=== PATIENT | male | born 1965 | race Caucasian/White ===

== ENCOUNTER 2017-07-02 21:04 | Emergency (ER) | payer OTHER ==
[2017-07-02 21:04] VITALS: BMI 36.6
--- NOTE | 2017-07-02 22:34 | C.PDOC ---
History Of Present Illness 51 year old male presents to the ED woith complaints of right foot pain for four days following a trip and fall at home four days ago. Patient notes swelling today and increased pain on ambulation which prompted visit. He denies weakness or numbness. Time Seen by Provider: 07/02/17 21:17 Chief Complaint (Nursing): Lower Extremity Problem/Injury History Per: Patient History/Exam Limitations: no limitations Onset/Duration Of Symptoms: Days (4 days ) Current Symptoms Are (Timing): Still Present Recent travel outside of the [place]: No - Ankle/Foot Description Of Injury: Fell (tripped and fell ) Past Medical History Reviewed: Historical Data, Nursing Documentation, Vital Signs Vital Signs: Last Vital Signs Temp 98.0 F 07/03/17 01:16 Pulse 86 07/03/17 01:16 Resp 18 07/03/17 01:16 BP 149/86 07/03/17 01:16 Pulse Ox 97 07/03/17 05:23 - Medical History PMH: HTN, Hypercholesterolemia Denies: Colonic Polyps Surgical History: Denies: Coronary Stent, Endoscopy - [facility] Procedures MEASURE OF CARDIAC SAMPL & PRESSURE, L HEART, PERC APPROACH (01/10/16) PLAIN RADIOGRAPHY OF MULT COR ART USING OTH CONTRAST (01/10/16) Family History: States: Unknown Family Hx - Social History Hx Alcohol Use: No Hx Substance Use: No - Immunization History Hx Tetanus Toxoid Vaccination: No Hx Influenza Vaccination: Yes Hx Pneumococcal Vaccination: Yes Review Of Systems Constitutional: Negative for: Fever, Chills Musculoskeletal: Positive for: Foot Pain (right foot pain ) Neurological: Negative for: Weakness, Numbness Physical Exam - Physical Exam Appears: Non-toxic, No Acute Distress Skin: Warm, Dry, No Ecchymosis (of the right foot ) Head: Atraumatic, Normacephalic Eye(s): bilateral: Normal Inspection, PERRL, EOMI Neck: Normal ROM, Supple Extremity: Normal ROM, Tenderness ( lateral right foot. Ankle is non-tender. ) , No Calf Tenderness, Capillary Refill (good capillary refill, less than two seconds ), No Deformity, Swelling (moderate swelling to entire right foot ) Extremity: Bilateral: Normal Color And Temperature Pulses: Left Dorsalis Pedis: Normal, Right Dorsalis Pedis: Normal Neurological/Psych: Oriented x3, Normal Speech, Normal Motor, Normal Sensation Gait: With Assistance (from spouse and a limp due to pain) ED Course And Treatment O2 Sat by Pulse Oximetry: 97 (RA) - Other Rad Right Foot X-Ray X-Ray: Interpreted by Me, Viewed By Me Interpretation: Coleman fracture at the Rt 5th MTP of right foot. Right Ankle X-Ray X-Ray: Interpreted by Me, Viewed By Me Interpretation: No fracture or dislocation. Progress Note: Right foot and ankle X-rays were ordered and patient was given motrin. Patient was evaluated at bedside by podiatry resident. Short leg splint was applied. On reassessment, patient is resting comfortably, and is in no acute distress. Patient was instructed to follow up with podiatry clinic in 1-2 days for further evaluation. - Physician Consult Information Time Consulting Physician Contacted: 12:10 Physician Contacted: Brian Alejo (Podiatry res) Outcome Of Conversation: Will evaluate in ER Disposition Counseled Patient/Family Regarding: Diagnosis, Need For Followup, Rx Given - Disposition Referrals: Podiatry Clinic [Outside] Disposition: HOME/ ROUTINE Disposition Time: 22:34 Condition: STABLE Additional Instructions: Please follow up with Dr Huang in Podiatry clinic on friday Use crutches at home - Do not bear weight Elevate the leg Take tylenol Extra strenghth for pain Return to ER if worse Instructions: Foot Fracture in Adults (ED) Forms: [facility] (J[place]ican), Work Excuse - Clinical Impression Clinical Impression: Foot fracture, right - PA / [employer]ING [employer] / Resident Statement MD/DO has reviewed & agrees with the documentation as recorded. - Scribe Statement The provider has reviewed the documentation as recorded by the Scribjose antonio Sultana All medical record entries made by the Ameibjose antonio were at my direction and personally dictated by me. I have reviewed the chart and agree that the record accurately reflects my personal performance of the history, physical exam, medical decision making, and the department course for this patient. I have also personally directed, reviewed, and agree with the discharge instructions and disposition.
--- NOTE | 2017-07-03 00:08 | CP.PCM.CON ---
History of Present Illness - History of Present Illness History of Present Illness: Podiatry Consult Note - Dr. Huang 51 year old male patient PMHx hypertension seen in ED complaining of right foot pain. Patient is accompanied by his at bedside. Patient states this past Friday, he tripped and fell down 1 step. Denies loss of consciousness. Patient states he was able to ambulate without difficulty for 3 days after his fall. Patient states yesterday he began to feel pain on the side of his right foot which prompted him to present to ED. Patient admits to only feeling pain when bearing weight to right foot. Patient denies any prior treatment to alleviate pain. Patient denies N/V/F/D/C/SOB. No other pedal complaints at this time. PMH: HTN, hypercholesterolemia PSH: denies FH: non-contributory SH: current smoker, (-)ETOH; patient is employed as a [employer] driver Meds: see med list All: NKDA Review of Systems - Review of Systems All systems: reviewed and no additional remarkable complaints except (as per HPI ) Past Patient History - Infectious Disease Hx of Infectious Diseases: None - Past Medical History & Family History Past Medical History?: Yes - Past Social History Smoking Status: Former Smoker - CARDIAC Hx Hypercholesterolemia: Yes Hx Hypertension: Yes - PULMONARY Hx Respiratory Disorders: No - NEUROLOGICAL Hx Neurological Disorder: No - HEENT Hx HEENT Problems: No - RENAL Hx Chronic Kidney Disease: No - ENDOCRINE/METABOLIC Hx Endocrine Disorders: No - HEMATOLOGICAL/ONCOLOGICAL Hx Blood Transfusions: No - INTEGUMENTARY Hx Dermatological Problems: No - MUSCULOSKELETAL/RHEUMATOLOGICAL Hx Musculoskeletal Disorders: No Hx Falls: No - GASTROINTESTINAL Hx Gastrointestinal Disorders: No - GENITOURINARY/GYNECOLOGICAL Hx Genitourinary Disorders: No - PSYCHIATRIC Hx Substance Use: No - SURGICAL HISTORY Hx Coronary Stent: No - ANESTHESIA Hx Anesthesia: No (IV SEDATION ONLY) Hx Anesthesia Reactions: No Hx Malignant Hyperthermia: No Meds Allergies/Adverse Reactions: Allergies Allergy/AdvReac Type Severity Reaction Status Date / Time No Known Allergies Allergy Verified 07/02/17 21:10 Physical Exam - Constitutional Appears: Well, Non-toxic, No Acute Distress - Extremities Exam Additional comments: VASC: DP and PT pulses palpable 2/4 b/l. CFT <3 seconds to all digits x10. TG warm to warm. Non-pitting edema noted to dorsolateral right foot. No increase in warmth noted to right foot. NEURO: Gross sensation intact bilaterally. DERM: Ecchymosis noted to right lateral malleolus. No erythema noted. No open lesions noted. Skin appears well-hydrated. ORTHO: Pain on palpation right foot styloid process. No pain on palpation right lateral malleolus, right peroneal tendons, ATFL, CFL, PTFL. Negative R anterior drawer or talar tilt. Muscle strength 5/5 for all dorsiflexors, plantarflexors, inverters, everters b/l - pain with resisted eversion R foot. Ankle joint ROM wnl b/l. - Neurological Exam Neurological exam: Alert, Oriented x3 - Psychiatric Exam Psychiatric exam: Normal Affect, Normal Mood Results - Vital Signs Recent Vital Signs: Last Vital Signs Temp 97.8 F 07/02/17 21:07 Pulse 77 07/02/17 21:07 Resp 20 07/02/17 21:07 BP 158/87 H 07/02/17 21:07 Pulse Ox 97 07/02/17 22:34 Assessment & Plan - Assessment and Plan (Free Text) Assessment: 51 year old male PMHx hypertension with displaced 5th metatarsal base fracture, right foot 2/ mechanical fall Plan: Patient seen and evaluated Discussed with attending, Dr. Huang Right foot XR reviewed: complete, displaced fracture of the lateral aspect of base of 5th metatarsal with intra-articular extension Right ankle XR reviewed: negative for acute fracture or dislocation Posterior splint applied to RLE. 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 Advised patient that doing so will potentially worsen displaced fracture, and informed patient morbidity associated with injury. Patient adamant about continuing to drive this weekend despite recommendations Discussed with patient operative intervention is recommended, and informed patient of postoperative course Recommend extra strength Tylenol prn pain Recommend RICE therapy Stable from podiatry standpoint Patient is to follow up with Dr. Huang in podiatry clinic on 07/07/17 Thank you for this consult, please reconsult podiatry as needed
[2017-07-03 01:17] VITALS: BP 149/86; PULSE 86; RESP 18; TEMP 98
[2017-07-03 05:18] VITALS: O2SAT 97
--- NOTE | 2017-07-03 09:38 | RAD ---
PROCEDURE: Right Ankle Radiographs. HISTORY: pain, fall COMPARISON: None FINDINGS: BONES: A 5th meta tarsal base fractures partly visualized JOINTS: . No osteoarthritis. Ankle mortise maintained. Talar dome intact SOFT TISSUES: Marked lateral soft tissue swelling OTHER FINDINGS: Inferior calcaneal spur. Posterior os trigonum IMPRESSION: Fifth metatarsal base fracture partly visualized Marked lateral ankle soft tissue swelling. Anterior tibiotalar joint effusion probable
--- NOTE | 2017-07-03 09:45 | RAD ---
PROCEDURE: Right Foot Radiographs. HISTORY: pain, fall COMPARISON: None. FINDINGS: BONES: An oblique fracture through the base of the 5th metatarsal with metatarsal calcaneal joint extension present. The lateral fracture ends are 2 mm. JOINTS: First metatarsal-phalangeal joint arthrosis SOFT TISSUES: Lateral 5th metatarsal soft tissue swelling. Ankle level soft tissue swelling. OTHER FINDINGS: Inferior calcaneal spur. Os trigone EM. 2 mm os tibial externum. IMPRESSION: Fifth metatarsal fracture with separation of the lateral fracture ends 2 mm. Metatarsal- cuboid articular joint extension
== END 2017-07-03 01:20 | disposition home or self-care (01) ==
LOC: C.ER 21:04
DX: S92.352A Displaced fracture of fifth metatarsal bone, left foot, initial encounter for closed fracture (principal); W10.9XXA Fall (on) (from) unspecified stairs and steps, initial encounter; Y92.009 Unspecified place in unspecified non-institutional (private) residence as the place of occurrence of the external cause